=== PATIENT | female | born 1945 | race Caucasian/White ===

== ENCOUNTER → 2018-10-21 | Outpatient (CLI) | payer MEDICARE ==
--- NOTE | 2018-10-21 10:01 | Diagnostic Imaging Report ---
INDICATION: Routine screening. Comparison is made with prior mammogram from 07/07/2014 and 10/16/2012. 2-D and 3-D bilateral diagnostic screening mammography was performed with CAD. Both breasts show marked parenchymal heterogeneity and increased density, limiting the sensitivity of mammography. The parenchymal pattern is stable. Benign calcifications on the left are noted. No mass or malignant-appearing micro-calcifications are seen. The axillae are unremarkable. IMPRESSION: BI-RADS category 2. No mammographic features suspicious for malignancy are identified. ACR BI-RADS Category 2: Benign findings. Result letter will be mailed to the patient. Note: At least 10% of breast cancer is not imaged by mammography. Dictated by: Dictated on workstation # [id number]
== END ==
LOC: RAD 07:52
PROVIDERS: ATTEND Internal Medicine
DX: Z12.31 Encounter for screening mammogram for malignant neoplasm of breast (principal)
CPT/HCPCS: 77067